=== PATIENT | female | born 2005 | race African-American/Black ===

== ENCOUNTER 2023-04-10 21:48 | Emergency (ER) | payer SELFPAY ==
[2023-04-10 21:55] VITALS: BP 117/80; PULSE 87; RESP 18; TEMP 98.2; BMI 26.9
[2023-04-10] MEDS ORDERED: LIDOCAINE PATCH REMOVAL MC SCH (22:00)
[2023-04-10] MEDS ORDERED: ACETAMINOPHEN 500 MG TABLET (FP) PO ONE (22:03)
[2023-04-10] MEDS ORDERED: LIDOCAINE 5% TOPICAL PATCH TP ONE (22:03)
[2023-04-10] MEDS ORDERED: IBUPROFEN 600 MG TABLET (FP) PO ONE (22:34)
[2023-04-10] MEDS ORDERED: LIDOCAINE 5% TOPICAL PATCH ONE (22:34)
[2023-04-10] MEDS ORDERED: ACETAMINOPHEN 500 MG TABLET (FP) ONE (22:35)
[2023-04-10] MEDS: IBUPROFEN 600 MG TABLET (FP) PO ONE ×2 (22:39→22:41)
== END 2023-04-10 22:59 | disposition home or self-care (01) ==
LOC: JERFT 21:48
DX: R51.9 Headache, unspecified (principal); R07.9 Chest pain, unspecified; S29.9XXA Unspecified injury of thorax, initial encounter; W22.8XXA Striking against or struck by other objects, initial encounter
CPT/HCPCS: 71046-TC-FY; 93005; 93010; 99284-25